=== PATIENT | male | born 1960 | race Two or more races ===

== ENCOUNTER 2019-02-27 17:27 | Emergency (ER) | payer MEDICARE, OTHER ==
[~2019-02-27] VITALS: Ht 170.2 cm; Wt 116.6 kg
[2019-02-27 17:36] VITALS: BP 127/93
[2019-02-27] MEDS ORDERED: LIDOCAINE 1%-EPI 1:100,000 20 ML VIAL TP ONE (18:00)
[2019-02-27] MEDS ORDERED: LIDOCAINE 1%-EPI 1:100,000 20 ML VIAL ONE (18:17)
== END 2019-02-27 18:45 | disposition home or self-care (01) ==
LOC: ER 17:27
DX: L02.811 Cutaneous abscess of head [any part, except face] (principal); F20.0 Paranoid schizophrenia; I10 Essential (primary) hypertension; J45.909 Unspecified asthma, uncomplicated; K21.9 Gastro-esophageal reflux disease without esophagitis; N40.0 Benign prostatic hyperplasia without lower urinary tract symptoms
CPT/HCPCS: 10060; 99283; A6402; J3490